=== PATIENT | male | born 1940 ===

== ENCOUNTER 2019-05-30 11:51 | Outpatient (CLI) | payer OTHER ==
[~2019-05-30] VITALS: Ht 152.4 cm; Wt 79.4 kg
== END 2019-05-30 15:19 | disposition home or self-care (01) ==
LOC: OFIC 805 11:51
DX: J31.0 Chronic rhinitis (principal); J33.8 Other polyp of sinus; J32.8 Other chronic sinusitis; H90.3 Sensorineural hearing loss, bilateral